=== PATIENT | female | born 1995 | race Caucasian/White ===

== ENCOUNTER 2020-07-02 02:20 | Emergency (ER) | payer MEDICAID ==
[~2020-07-02] VITALS: Ht 165.1 cm; Wt 69.4 kg
[2020-07-02 02:25] VITALS: BP_SYST 119
--- NOTE | 2020-07-02 02:25 | NUR ---
Patient to ER bed 7 to gown for evaluation. Side rails up. Report given to BRIDGETT FREGOSO.
--- NOTE | 2020-07-02 02:30 | NUR ---
PT AAO AND AMBULATORY C/O LEFT EAR PAIN SINCE THURSDAY AND WAS SEEN AT A CLINIC FOR IT AND WAS PRESCRIBED ANTIBIOTICS. PT REPORTS 10 PAIN AND IT BEING SEEN FOR PAIN THAT ACCOMPANIES CURRENT EAR INFECTION.
--- NOTE | 2020-07-02 02:51 | NUR ---
ER DR. TRAN AT THE BEDSIDE EVALUATING PT
--- NOTE | 2020-07-02 03:10 | NUR ---
ASSISTED DR. TRAN WITH WICK PLACEMENT IN LEFT EAR. PT TOLERATED WELL.
[2020-07-02] MEDS ORDERED: IBUPROFEN 600 MG TABLET PO ONE (03:30)
[2020-07-02] MEDS ORDERED: OXYCODONE/ACETAMINOPHEN 5-325 TABLET PO ONE (03:30)
[2020-07-02 03:52] VITALS: BP_SYST 119
--- NOTE | 2020-07-02 03:52 | NUR ---
Patient given written and verbal discharge instructions and verbalizes understanding. DR. MARC GILLIAM MD discussed with patient the results and treatment provided. Patient in stable condition. ID arm band removed. Rx of MOTRIN. TYLENOL 3 AND AUGMENTIN given. Patient educated on pain management and to follow up with PMD. Pain Scale 0/10. Opportunity for questions provided and answered. Medication side effect fact sheet provided.
== END 2020-07-02 03:52 | disposition home or self-care (01) ==
LOC: SED 02:20
DX: H73.012 Bullous myringitis, left ear (principal); H60.502 Unspecified acute noninfective otitis externa, left ear
CPT/HCPCS: 81025; 82962; 99283